=== PATIENT | male | born 1975 | race Caucasian/White ===

== ENCOUNTER 2017-10-24 14:36 | Emergency (ER) | payer SELFPAY ==
[2017-10-24] MEDS ORDERED: Sodium Chloride 0.9% 10 ML Syringe FLUSH PRN (14:45)
[2017-10-24] MEDS ORDERED: Sodium Chloride 0.9% 2.5 ML Syringe FLUSH PRN (14:45)
--- NOTE | 2017-10-24 14:45 | EDM.PDOC ---
ED HPI GENERAL MEDICAL PROBLEM - General Chief Complaint: Chest Pain Stated Complaint: CHEST PAIN Time Seen by Provider: 10/24/17 14:39 Source of Information: Reports: Patient History Limitations: Reports: No Limitations - History of Present Illness INITIAL COMMENTS - FREE TEXT/NARRATIVE: History of present illness: []Patient's had 2 weeks of right-sided chest pain that is worse with deep breathing and movement. Denies any fevers, chills, trauma or muscle strain. Review of systems: As per history of present illness and below otherwise all systems reviewed and negative. Past medical history: As per history of present illness and as reviewed below otherwise noncontributory. Surgical history: As per history of present illness and as reviewed below otherwise noncontributory. Social history: No reported history of drug or alcohol abuse. Family history: As per history of present illness and as reviewed below otherwise noncontributory. Physical exam: General: Well developed, well nourished severe painful distress holding his right chest with his hand HEENT: Atraumatic, normocephalic, pupils reactive, negative for conjunctival pallor or scleral icterus, mucous membranes moist, throat clear, neck supple, nontender, trachea midline. Lungs: Clear to auscultation, breath sounds equal bilaterally, chest nontender. Heart: S1S2, regular, negative for clicks, rubs, or JVD. Abdomen: Soft, nondistended, nontender. Negative for masses or hepatosplenomegaly. Negative for costovertebral tenderness. Pelvis: Stable nontender. Genitourinary: Deferred. Rectal: Deferred. Extremities: Atraumatic, negative for cords or calf pain. Neurovascular unremarkable. Neuro: Awake, alert, oriented. Cranial nerves II through XII unremarkable. Cerebellum unremarkable. Motor and sensory unremarkable throughout. Exam nonfocal. Diagnostics: []EKG labs including cardiac enzymes and d-dimer are negative, trachea is also negative. Therapeutics: []Toradol and Motrin for pain Impression: []Pleurisy Plan: []Tramadol for pain take Motrin or aspirin regularly for the pain follow-up with primary care physician Definitive disposition and diagnosis as appropriate pending reevaluation and review of above. Right Middle Chest Pain Score (Numeric/FACES): 10 - Related Data Allergies Allergy/AdvReac Type Severity Reaction Status Date / Time No Known Allergies Allergy Verified 10/24/17 14:46 Home Meds: Home Meds Omeprazole Magnesium [Prilosec Otc] 20 mg PO DAILY 10/24/17 [History] ED ROS GENERAL - Review of Systems Review Of Systems: See Below (See history of present illness) ED EXAM, GENERAL - Physical Exam Exam: See Below (See history of present illness) Course - Vital Signs Last Recorded V/S: Last Vital Signs Temp 98.7 F 10/24/17 14:43 Pulse 93 10/24/17 14:43 Resp 12 10/24/17 14:43 BP 168/102 H 10/24/17 14:43 Pulse Ox 94 L 10/24/17 14:43 - Orders/Labs/Meds Orders: Active Orders 24 hr Category Date Time Status Cardiac Monitoring [RC] . DIRECTED Care 10/24/17 14:44 Active EKG Documentation Completion [RC] STAT Care 10/24/17 14:42 Active EKG Documentation Completion [RC] STAT Care 10/24/17 14:44 Inactive Pulse Oximetry [RC] ASDIRECTED Care 10/24/17 14:44 Active RT Aerosol Therapy [RC] ASDIRECTED Care 10/24/17 15:41 Active Chest 2V [CR] Stat Exams 10/24/17 14:43 Taken CULTURE BLOOD [BC] Stat Lab 10/24/17 14:54 Received CULTURE BLOOD [BC] Stat Lab 10/24/17 15:00 Received Sodium Chloride 0.9% [Saline Flush] Med 10/24/17 14:45 Active 10 ml FLUSH ASDIRECTED PRN Sodium Chloride 0.9% [Saline Flush] Med 10/24/17 14:45 Active 2.5 ml FLUSH ASDIRECTED PRN Blood Culture x2 Reflex Set [OM.PC] Stat Oth 10/24/17 14:45 Ordered Saline Lock Insert [OM.PC] Stat Oth 10/24/17 14:42 Ordered Medication Orders Sodium Chloride (Saline Flush) 10 ml FLUSH ASDIRECTED PRN PRN Reason: Keep Vein Open Sodium Chloride (Saline Flush) 2.5 ml FLUSH ASDIRECTED PRN PRN Reason: Keep Vein Open Labs: Laboratory Tests 10/24/17 10/24/17 10/24/17 Range/Units 14:43 14:43 14:43 WBC 8.12 (4.0-11.0) K/uL RBC 4.97 (4.50-5.90) M/uL Hgb 17.5 H (13.0-17.0) g/dL Hct 49.8 (38.0-50.0) % MCV 100.2 H (80.0-98.0) fL MCH 35.2 H (27.0-32.0) pg MCHC 35.1 (31.0-37.0) g/dL RDW Std Deviation 45.7 (28.0-62.0) fl RDW Coeff of Cira 13 (11.0-15.0) % Plt Count 227 (150-400) K/uL MPV 10.60 (7.40-12.00) fL Neut % (Auto) 52.3 (48.0-80.0) % Lymph % (Auto) 32.1 (16.0-40.0) % [place] % (Auto) 11.2 (0.0-15.0) % Eos % (Auto) 3.9 (0.0-7.0) % Baso % (Auto) 0.5 (0.0-1.5) % Neut # (Auto) 4.2 (1.4-5.7) K/uL Lymph # (Auto) 2.6 H (0.6-2.4) K/uL [place] # (Auto) 0.9 H (0.0-0.8) K/uL Eos # (Auto) 0.3 (0.0-0.7) K/uL Baso # (Auto) 0.0 (0.0-0.1) K/uL Nucleated RBC % 0.0 /100WBC Nucleated RBCs # 0 K/uL D-Dimer, Quantitative < 0.19 (0.0-0.52) mg/LFEU Sodium 139 (136-146) mmol/L Potassium 4.3 (3.5-5.1) mmol/L Chloride 103 (98-110) mmol/L Carbon Dioxide 30 (21-31) mmol/L BUN 13 (6.0-23.0) mg/dL Creatinine 1.0 (0.6-1.5) mg/dL Est Cr Clr Drug Dosing 79.76 mL/min Estimated GFR (MDRD) > 60.0 ml/min Glucose 87 (60-110) mg/dL Calcium 9.4 (8.8-10.8) mg/dL Total Bilirubin 0.4 (0.1-1.5) mg/dL AST 22 (5-40) IU/L ALT 40 (8-54) IU/L Alkaline Phosphatase 78 (40-150) Troponin I < 0.10 (0.0-0.29) NG/ML Total Protein 7.6 (6.0-8.0) g/dL Albumin 4.2 (3.5-5.0) g/dL Globulin 3.4 (2.0-3.5) g/dL Albumin/Globulin Ratio 1.2 L (1.3-2.8) Meds: Medications Generic Name Dose Route Start Last Admin Trade Name Freq PRN Reason Stop Dose Admin Sodium Chloride 10 ml 10/24/17 14:45 Saline Flush FLUSH ASDIRECTED PRN Keep Vein Open Sodium Chloride 2.5 ml 10/24/17 14:45 Saline Flush FLUSH ASDIRECTED PRN Keep Vein Open Discontinued Medications Generic Name Dose Route Start Last Admin Trade Name Freq PRN Reason Stop Dose Admin Albuterol/Ipratropium 3 ml 10/24/17 15:41 10/24/17 15:59 Duoneb 3.0-0.5 Mg/3 Ml NEB 10/24/17 15:42 3 ml ONETIME ONE Administration Ketorolac Tromethamine 30 mg 10/24/17 15:55 10/24/17 16:00 Toradol IVPUSH 10/24/17 15:56 30 mg ONETIME ONE Administration Morphine Sulfate 4 mg 10/24/17 15:35 10/24/17 15:40 Morphine IVPUSH 10/24/17 15:36 4 mg ONETIME ONE Administration Ondansetron HCl 4 mg 10/24/17 15:35 10/24/17 15:40 Zofran IVPUSH 10/24/17 15:36 4 mg ONETIME ONE Administration Departure - Departure Time of Disposition: 16:38 Disposition: Home, Self-Care 01 Condition: Good Clinical Impression: Pleurisy Referrals: Prisca Walker MD [Resident] - Forms: ED Department Discharge Additional Instructions: The following information is given to patients seen in the emergency department who are being discharged to home. This information is to outline your options for follow-up care. We provide all patients seen in our emergency department with a follow-up referral. The need for follow-up, as well as the timing and circumstances, are variable depending upon the specifics of your emergency department visit. If you don't have a primary care physician on staff, we will provide you with a referral. We always advise you to contact your personal physician following an emergency department visit to inform them of the circumstance of the visit and for follow-up with them and/or the need for any referrals to a consulting specialist. The emergency department will also refer you to a specialist when appropriate. This referral assures that you have the opportunity for follow-up care with a specialist. All of these measure are taken in an effort to provide you with optimal care, which includes your follow-up. Under all circumstances we always encourage you to contact your private physician who remains a resource for coordinating your care. When calling for follow-up care, please make the office aware that this follow-up is from your recent emergency room visit. If for any reason you are refused follow-up, please contact the [facility] Emergency Department at and asked to speak to the emergency department charge nurse. Tramadol, aspirin and/or Motrin for pain follow-up with primary care - My Orders Last 24 Hours: My Active Orders 10/24/17 14:42 EKG Documentation Completion [RC] STAT Saline Lock Insert [OM.PC] Stat 10/24/17 14:43 Chest 2V [CR] Stat 10/24/17 14:44 Cardiac Monitoring [RC] . DIRECTED EKG Documentation Completion [RC] STAT Pulse Oximetry [RC] ASDIRECTED 10/24/17 14:45 Sodium Chloride 0.9% [Saline Flush] 10 ml FLUSH ASDIRECTED PRN Sodium Chloride 0.9% [Saline Flush] 2.5 ml FLUSH ASDIRECTED PRN Blood Culture x2 Reflex Set [OM.PC] Stat 10/24/17 14:54 CULTURE BLOOD [BC] Stat 10/24/17 15:00 CULTURE BLOOD [BC] Stat 10/24/17 15:41 RT Aerosol Therapy [RC] ASDIRECTED - Assessment/Plan Last 24 Hours: My Active Orders 10/24/17 14:42 EKG Documentation Completion [RC] STAT Saline Lock Insert [OM.PC] Stat 10/24/17 14:43 Chest 2V [CR] Stat 10/24/17 14:44 Cardiac Monitoring [RC] . DIRECTED EKG Documentation Completion [RC] STAT Pulse Oximetry [RC] ASDIRECTED 10/24/17 14:45 Sodium Chloride 0.9% [Saline Flush] 10 ml FLUSH ASDIRECTED PRN Sodium Chloride 0.9% [Saline Flush] 2.5 ml FLUSH ASDIRECTED PRN Blood Culture x2 Reflex Set [OM.PC] Stat 10/24/17 14:54 CULTURE BLOOD [BC] Stat 10/24/17 15:00 CULTURE BLOOD [BC] Stat 10/24/17 15:41 RT Aerosol Therapy [RC] ASDIRECTED
[2017-10-24 15:14] LABS: CHLORIDE,CL 103 mmol/L (98-110); SODIUM,NA 139 mmol/L (136-146)
[2017-10-24] MEDS ORDERED: Morphine 4 MG/ML Syringe IVPUSH ONE (15:35)
[2017-10-24] MEDS ORDERED: Ondansetron 4 MG/2 ML SDV IVPUSH ONE (15:35)
[2017-10-24] MEDS ORDERED: Albuterol/Ipratropium 3.0-0.5 MG/3 ML Neb Soln NEB ONE (15:41)
[2017-10-24] MEDS ORDERED: Ketorolac 30 MG/ML SDV IVPUSH ONE (15:55)
[2017-10-24] MEDS ORDERED: Aspirin 325 MG Tab PO ONE (16:37)
--- NOTE | 2017-10-27 14:51 | CR ---
EXAM DATE: 10/24/17 PATIENT'S AGE: 42 Patient: JACKIE KAPLAN Facility: [place], [place] Site . Site : [id number] Study: XRay Chest 2v Chest XR-10/24/2017 3:26:52 PM Ordering Physician: Cruz [place] Final Report: INDICATION: Cough, right side arm pain TECHNIQUE: Chest 2 views. COMPARISON: None. FINDINGS: Cardiovascular and mediastinum: Heart size and vasculature are normal in caliber and appearance. Mediastinum is within normal limits. Lungs and pleural spaces: Lungs are clear. No sign of infiltrate or mass. No sign of pleural effusion. No pneumothorax. Bones and soft tissues: No significant findings. IMPRESSION: Unremarkable chest. Dictated by: Clyde Brito MD @ 10/24/2017 15:58:36 (Electronic Signature) Report Signed by Proxy. [facility]
== END 2017-10-24 16:55 | disposition home or self-care (01) ==
LOC: MW.ED 14:36
DX: R09.1 Pleurisy (principal); Z79.899 Other long term (current) drug therapy
CPT/HCPCS: 36415; 71046; 80053; 84484; 85025; 85379; 87040; 93005; 96374; 96375; 99285; J1885; J2270; J2405; 99284